=== PATIENT | male | born 1970 | race American Indian/Alaskan Native ===

== ENCOUNTER 2016-04-19 18:49 | Emergency (ER) | payer OTHER ==
[2016-04-19 19:06] LABS: Urine Drugs of Abuse Note Disclamer
[2016-04-19] MEDS ORDERED: ATIVAN PO ONE (19:11)
[2016-04-19 19:17] LABS: Bilirubin,Urine NEG (Negative); Blood,Urine NEG (Negative); Ketones,Urine NEG (Negative); Leukocyte Esterase,Urine NEG (Negative); Mucus,Urine FEW /HPF; Nitrite,Urine NEG (Negative); Protein,Urine <15 mg/dL mg/dL (Negative); RBC,Urine < 1.0 /HPF (0.0-6.0); Urobilinogen,Urine < 2.0 mg/dL (<2.0)
--- NOTE | 2016-04-19 19:28 | Emergency Department Report ---
ED Psych HPI - General Chief Complaint: Psych Stated Complaint: THOUGHTS OF HARMING SELF/OTHERS Time Seen by Provider: 04/19/16 19:08 Source: patient, police Mode of arrival: Ambulatory Limitations: No Limitations - History of Present Illness Initial Comments: 45-year-old male presents to the emergency Department via law enforcement for medical evaluation. Patient states that he has a history of bipolar disorder and feels "amped up". He admits to drinking alcohol today. He states he feels like getting into a fight and having that person kill him. He denies auditory or visual hallucinations. There are no other complaints. MD Complaint: suicidal ideation -: unknown Associated Psychiatric Symptoms: suicidal ideation, racing thoughts History of same: Yes Quality: constant Improves With: none Worsens With: none Context: recent alcohol abuse Associated Symptoms: denies other symptoms Treatments Prior to Arrival: placed on mental he If Self Harm: admits thoughts of, has plan - Related Data Allergies Allergy/AdvReac Type Severity Reaction Status Date / Time No Known Allergies Allergy Unverified 04/19/16 18:55 ED Review of Systems ROS: Stated complaint: THOUGHTS OF HARMING SELF/OTHERS Other details as noted in HPI Comment: All other systems reviewed and negative Psychiatric: suicidal thoughts ED Past Medical Hx - Past Medical History Previous Medical History?: Yes Hx Psychiatric Treatment: Yes (BIPOLAR) - Surgical History Past Surgical History?: No - Family History Family history: no significant - Social History Smoking Status: Current Every Day Smoker Substance Use Type: Alcohol ED Physical Exam - General Limitations: No Limitations General appearance: alert, anxious - Head Head exam: Present: atraumatic, normocephalic - Eye Eye exam: Present: normal appearance, PERRL, EOMI - ENT ENT exam: Present: normal exam, normal orophraynx, mucous membranes moist - Neck Neck exam: Present: normal inspection, full ROM. Absent: tenderness - Respiratory Respiratory exam: Present: normal lung sounds bilaterally. Absent: respiratory distress - Cardiovascular Cardiovascular Exam: Present: normal rhythm, tachycardia, normal heart sounds - GI/Abdominal GI/Abdominal exam: Present: soft, normal bowel sounds. Absent: distended, tenderness - Extremities Exam Extremities exam: Present: normal inspection, full ROM. Absent: tenderness - Back Exam Back exam: Present: normal inspection, full ROM. Absent: tenderness - Neurological Exam Neurological exam: Present: alert, oriented X3. Absent: motor sensory deficit - Psychiatric Psychiatric exam: Present: agitated, manic, suicidal ideation - Skin Skin exam: Present: warm, dry, intact ED Course Vital Signs 04/19/16 18:51 Temperature 99.1 F Pulse Rate 122 H Respiratory 22 Rate Blood Pressure 140/99 O2 Sat by Pulse 95 Oximetry - Reevaluation(s) Reevaluation #1: 04/19/16 19:27 Mental health has evaluated the patient. Form 1013 has been signed and placed on the patient's chart. Patient has agreed to oral medication to help calm him down. Giving the patient 1 mg of oral lorazepam. Patient is currently awaiting placement. ED Medical Decision Making - Differential Diagnosis bipolar disorder, suicidal ideation Critical care attestation.: If time is entered above; I have spent that time in minutes in the direct care of this critically ill patient, excluding procedure time. ED Disposition Clinical Impression: Bipolar 1 disorder, manic, moderate, Suicidal ideation Alcohol intoxication Qualifiers: Complication of substance-induced condition: uncomplicated Qualified Code(s): F10.120 - Alcohol abuse with intoxication, uncomplicated Disposition: DC/TX PSY HOSP/PSY UNIT Is pt being admited?: No Condition: Stable Time of Disposition: 19:28
[2016-04-19 19:34] LABS: Anion Gap 24 mmol/L; BUN/Creatinine Ratio 11.11; Blood Urea Nitrogen 10 mg/dL (9-20); Calcium 9.1 mg/dL (8.4-10.2); Carbon Dioxide 21 mmol/L (22-30); Glucose 113 mg/dL (75-100); Potassium 4.1 mmol/L (3.6-5.0); Sodium 137 mmol/L (137-145)
[2016-04-19 19:36] LABS: Hematocrit 48.2 % (35.5-45.6); Hemoglobin 16.3 gm/dl (11.8-15.2); Mean Corpuscular HGB Conc 34 % (32-34); Mean Corpuscular Hemoglobin 30 pg (28-32); Mean Corpuscular Volume 89 fl (84-94); Platelet Count 312 K/mm3 (140-440); Red Blood Count 5.39 M/mm3 (3.65-5.03); Red Cell Distribution Width 13.6 % (13.2-15.2); White Blood Count 14.3 K/mm3 (4.5-11.0)
[2016-04-19 20:21] LABS: Blastocytes % (Manual) 0 %
[2016-04-19 20:23] LABS: Anisocytosis 1+
[2016-04-19 20:24] LABS: Diff Status Complete; Platelet Estimate Consistent w Auto
[2016-04-19] MEDS: HABITROL TD SCH (21:29)
[2016-04-19] MEDS ORDERED: ATIVAN IM PRN (23:32)
[2016-04-19] MEDS ORDERED: HALDOL IM PRN (23:32)
[2016-04-19] MEDS ORDERED: BENADRYL IM PRN (23:32)
[2016-04-20] MEDS: HABITROL TD SCH (09:35)
--- NOTE | 2016-04-20 14:24 | Event Note ---
Date: 04/20/16 Vital signs are reviewed. Patient awaiting psychiatric placement at this time. Vital Signs 04/19/16 04/20/16 04/20/16 18:51 08:56 08:57 Temperature 99.1 F 97.7 F Pulse Rate 122 H 80 Respiratory 22 16 16 Rate Blood Pressure 140/99 Blood Pressure 151/76 [Left] O2 Sat by Pulse 95 95 95 Oximetry
--- NOTE | 2016-04-20 22:16 | Consultation ---
History of Present Illness - Reason for Consult Reason for consult: psych management - Chief Complaint Chief complaint: CC: "I don't know man" Patient is a 45 year old WM with prior psych dx of bipolar disorder who presented to [facility] for worsening voices for the past week. Patient notes that these voices tell him different thing "they don't like me." "I'm unworthy and always there." He states that they are not command in nature though. He can't identify a specifric trigger as to why they've worsening, even though they've been present for the last 8 months. They are not occurring with visual hallucinations. They are concurrent with paranoia about "the world". He admits to some depression with up/down sleep but not to a point where he's been having any thoughts of self harm. No changes in energy or focus. He denies any SI/HI or VH. No euphoria or grandiosity, but does get easily irritable. Patient was at a rehab facility when this occurred and relapsed on etoh as a result of the psychosis. HE started drinking daily- about a 6 pack of beer. Last drink was last night. No history of Dt's or blackouts. Patient states that he began at age 18 and was in the rehab program to get sober. Currently he denies any withdrawal symptoms. Realizing he was getting worse patient came to the hospital for help. Medications and Allergies Allergies Allergy/AdvReac Type Severity Reaction Status Date / Time No Known Allergies Allergy Unverified 04/19/16 18:55 Home Medications Medication Instructions Recorded Confirmed Last Taken Type Citalopram [celeXA] 20 mg PO QDAY 04/19/16 04/19/16 Unknown History busPIRone [Buspar] 5 mg PO DAILY 04/19/16 04/19/16 Unknown History Active Meds: Active Medications Diphenhydramine HCl (Benadryl) 50 mg IM Q6H PRN PRN Reason: Agitation Last Admin: 04/19/16 23:35 Dose: 50 mg Haloperidol Lactate (Haldol) 10 mg IM Q8H PRN PRN Reason: Agitation Last Admin: 04/20/16 17:58 Dose: 10 mg Lorazepam (Ativan) 2 mg IM Q8H PRN PRN Reason: Agitation Last Admin: 04/20/16 17:58 Dose: 2 mg Nicotine (Habitrol) 21 mg TD DAILY VEL Stop: 04/23/16 20:59 Last Admin: 04/20/16 09:35 Dose: 21 mg Past psychiatric history - past Psychiatric treatment and history Psych: Bipolar psychiatric treatment history: inpt: "it's been so long"- late . admitted and dx with bipolar d/o outpt:[facility] +suicide attempts- slit wrist in psych meds tried in past include prozac, zoloft, celexa, buspar, invega substance history: etoh since age 18, with several rehabs no illicit drug use - Social History Social history: other (homeless, no children, not dating, school include high school, no work, no family psych history, no sexual/physical abuse history) Mental Status Exam - Vital signs Last Vital Signs Temp 98.5 F 04/20/16 20:02 Pulse 90 04/20/16 20:02 Resp 18 04/20/16 20:02 BP 123/86 04/20/16 20:02 Pulse Ox 97 04/20/16 20:02 - Exam Orientation: time, place, person Affect: anxious, agitated Mood: anxious Thought content: delusions, paranoia Thought Process: Circumstantial Perceptions: auditory Speech: normal rate and pattern Concentration: distractible Motor activity: agitated Level of consciousness: alert Memory: Intact Interaction: cooperative Mini mental status exam(if necessary): 24-30 Results Result Diagrams: 04/19/16 19:04 04/19/16 19:04 All other labs normal. Assessment and Plan Assessment and plan: Patient is a 45 year old WM with prior psych dx of bipolar disorder who presented to [facility] for worsening voices for the past week. Concurrently patient relapsed on etoh. plan: - bipolar d/o- patient should abstain from multiple antidepressants at this time. Recommend use of Invega 3mg po qhs given patient notes that it helped him in the past to address his irritable mood and auditory hallucinations. Discussed risks, side effects and benefits with patient including metabolic syndrome. -etoh use- continue with detox plan as ordered. no current withdrawal symptoms noted by the patient after a very recent relapse. -dispo- continue treatment until med cleared and then transfer in inpt psych unit.
[2016-04-21] MEDS: HABITROL TD SCH ×2 (10:00→19:49)
[2016-04-21] MEDS ORDERED: ACTIVASE ONE (11:46)
--- NOTE | 2016-04-21 15:26 | Event Note ---
Date: 04/21/16 Vital signs are reviewed and appreciated. Patient awaiting psychiatric placement. Vital Signs 04/19/16 04/20/16 04/20/16 18:51 08:56 08:57 Temperature 99.1 F 97.7 F Pulse Rate 122 H 80 Respiratory 22 16 16 Rate Blood Pressure 140/99 Blood Pressure 151/76 [Left] O2 Sat by Pulse 95 95 95 Oximetry 04/20/16 04/20/16 10:00 20:02 Temperature 97.7 F 98.5 F Pulse Rate 80 90 Respiratory 16 18 Rate Blood Pressure Blood Pressure 151/76 123/86 [Left] O2 Sat by Pulse 95 97 Oximetry
--- NOTE | 2016-04-21 17:34 | Progress Note ---
Subjective - Reason for Consult Consult date: 04/21/16 Reason for consult: follow up - Chief Complaint Chief complaint: CC: "I don't know man" Patient is a 45 year old WM with prior psych dx of bipolar disorder who presented to [facility] for worsening voices for the past week. Patient notes that these voices tell him different thing "they don't like me." "I'm unworthy and always there." He states that they are not command in nature though. He can't identify a specific trigger as to why they've worsening, even though they've been present for the last 8 months. They are not occurring with visual hallucinations. They are concurrent with paranoia about "the world" . He admits to some depression with up/down sleep but not to a point where he' s been having any thoughts of self harm. No changes in energy or focus. He denies any SI/HI or VH. No euphoria or grandiosity, but does get easily irritable. Patient was at a rehab facility when this occurred and relapsed on etoh as a result of the psychosis. HE started drinking daily- about a 6 pack of beer. Last drink was last night. No history of Dt's or blackouts. Patient states that he began at age 18 and was in the rehab program to get sober. Currently he denies any withdrawal symptoms. Realizing he was getting worse patient came to the hospital for help. Mental Status Exam - Vital signs Last Vital Signs Temp 98.7 F 04/21/16 10:00 Pulse 89 04/21/16 10:00 Resp 16 04/21/16 10:00 BP 136/79 04/21/16 10:00 Pulse Ox 98 04/21/16 10:00 - Exam Narrative exam: Patient is agitated today about not being able to smoke and being in the same room. He is waiting on placement to an inpatient psychiatric facility. He has not been physically aggressive. He will begin risperdal 2mg hs for mood and psychotic symptoms tonight. He was unaware he could have the nicotine patch again. Orientation: time, place, person Affect: agitated Mood: anxious Thought Process: Tangential Perceptions: auditory (voices telling him negative statements about himself) Speech: normal rate and pattern Concentration: distractible Motor activity: normal Level of consciousness: alert Memory: Intact Sleep Symptoms: Difficulty Falling Asleep Interaction: guarded Assessment and Plan Mr. Macedo is waiting placement at an inpatient psychiatric facility. Continue Risperdal 2mg hs for mood and psychotic symptoms. Continue to monitor for safety. May have nicotine patch as ordered.
[2016-04-21] MEDS ORDERED: RisperDAL PO SCH (22:00)
[2016-04-21] MEDS ORDERED: COGENTIN PO SCH (22:00)
--- NOTE | 2016-04-22 14:37 | Progress Note ---
Subjective - Reason for Consult Consult date: 04/22/16 Reason for consult: follow up - Chief Complaint Chief complaint: CC: "I don't know man" Patient is a 45 year old WM with prior psych dx of bipolar disorder who presented to [facility] for worsening voices for the past week. Patient notes that these voices tell him different thing "they don't like me." "I'm unworthy and always there." He states that they are not command in nature though. He can't identify a specific trigger as to why they've worsening, even though they've been present for the last 8 months. They are not occurring with visual hallucinations. They are concurrent with paranoia about "the world" . He admits to some depression with up/down sleep but not to a point where he' s been having any thoughts of self harm. No changes in energy or focus. He denies any SI/HI or VH. No euphoria or grandiosity, but does get easily irritable. Patient was at a rehab facility when this occurred and relapsed on etoh as a result of the psychosis. HE started drinking daily- about a 6 pack of beer. Last drink was last night. No history of Dt's or blackouts. Patient states that he began at age 18 and was in the rehab program to get sober. Currently he denies any withdrawal symptoms. Realizing he was getting worse patient came to the hospital for help. Mental Status Exam - Vital signs Last Vital Signs Temp 98.6 F 04/22/16 08:15 Pulse 93 H 04/22/16 08:15 Resp 18 04/22/16 08:15 BP 135/80 04/22/16 08:15 Pulse Ox 96 04/22/16 08:15 - Exam Narrative exam: He is minimizes his initial presentation. He is taking risperidone as ordered. He is awaiting placement for inpatient hospitalization. He discussed how he left [facility]. He was there for 8 months and exhausted his time there. At that point he went to a motel and drank alcohol and began experiencing auditory hallucinations, agitation, and paranoia. He paces throughout the room. He has intermittent agitation and complains of how long he's been waiting on placement. Orientation: time, place, person Affect: agitated Mood: congruent with affect Thought content: paranoia Thought Process: Tangential Perceptions: auditory (denies today) Speech: normal rate and pattern Concentration: focused Motor activity: other (pacing) Level of consciousness: alert Memory: Intact Sleep Symptoms: None (difficulty sleeping in his current circumstances (ER)) Interaction: guarded Assessment and Plan Mr. Macedo is waiting placement at an inpatient psychiatric facility. He was informed of the process for admission. He discussed how he is connected with outpatient treatment/medication management at [facility]. Continue Risperdal 2mg hs for mood and psychotic symptoms. Continue to monitor for safety. May have nicotine patch as ordered.
[2016-04-22] MEDS: HABITROL TD SCH (15:19)
[2016-04-22 16:52] VITALS: BP 143/96
--- NOTE | 2016-04-22 20:22 | Event Note ---
Date: 04/22/16 Patient seen and evaluated today by myself and psychiatry. Patient not homicidal suicidal. Alert and oriented 3. GCS of 15, NIH score of 0. Walks with a steady gait. Clinically sober. No acute complaints. Psychiatry recommends that 1013/involuntary hold be discontinued. I agree with this and think that this is reasonable. 1013 is discontinued. The patient is going to follow-up tomorrow at [facility]. Vital Signs 04/19/16 04/20/16 04/20/16 18:51 08:56 08:57 Temperature 99.1 F 97.7 F Pulse Rate 122 H 80 Respiratory 22 16 16 Rate Blood Pressure 140/99 Blood Pressure 151/76 [Left] O2 Sat by Pulse 95 95 95 Oximetry 04/20/16 04/20/16 04/21/16 10:00 20:02 10:00 Temperature 97.7 F 98.5 F 98.7 F Pulse Rate 80 90 89 Respiratory 16 18 16 Rate Blood Pressure Blood Pressure 151/76 123/86 136/79 [Left] O2 Sat by Pulse 95 97 98 Oximetry 04/21/16 04/21/16 04/22/16 20:36 20:44 08:15 Temperature 98.7 F 98.6 F Pulse Rate 77 93 H Respiratory 16 16 18 Rate Blood Pressure Blood Pressure 146/84 135/80 [Left] O2 Sat by Pulse 96 96 96 Oximetry 04/22/16 16:51 Temperature 99.2 F Pulse Rate 100 H Respiratory 16 Rate Blood Pressure Blood Pressure 143/96 [Left] O2 Sat by Pulse 100 Oximetry
== END 2016-04-22 21:36 | disposition home or self-care (01) ==
LOC: EEVIPCON 18:49 → ED 18:49
DX: F31.9 Bipolar disorder, unspecified (principal); R45.851 Suicidal ideations; F10.120 Alcohol abuse with intoxication, uncomplicated; F17.200 Nicotine dependence, unspecified, uncomplicated
CPT/HCPCS: 36415; 80048; 80307; 81001; 85007; 85025; 96372; 99284; G0480; J1200; J1630; J2060; 80320